=== PATIENT | female | born 1985 | race Caucasian/White ===

== ENCOUNTER 2019-11-20 17:10 | Emergency (ER) | payer MEDICAID ==
[~2019-11-20] VITALS: Ht 162.6 cm; Wt 65.8 kg
[2019-11-20 17:26] VITALS: Ht 162.6 cm; Wt 65.8 kg
[2019-11-20 17:39] VITALS: BP 135/76
== END 2019-11-20 17:39 | disposition home or self-care (01) ==
LOC: ED 17:10
DX: L03.011 Cellulitis of right finger (principal); L25.8 Unspecified contact dermatitis due to other agents; E11.9 Type 2 diabetes mellitus without complications; Z86.2 Personal history of diseases of the blood and blood-forming organs and certain disorders involving the immune mechanism